=== PATIENT | female | born 1985 | race Caucasian/White ===

== ENCOUNTER → 2017-07-15 09:33 | Outpatient (CLI) | payer BC, SELFPAY ==
--- NOTE | 2017-07-15 09:36 | CA_ITS ---
PROCEDURE: 2-D M-mode and color Doppler study INDICATIONS FOR THE TEST: Chest pain COPD Heart MurmurX Tobacco SmokingX Palpitations Fatigue Syncope Edema Hypertension Diabetes Mellitus Rheumatic Fever SOB ROBERTS Obesity Hyperlipidemia Family History HD Additional History BREAST IMPLANTS PATIENT INFORMATION HEIGHT: 64 WEIGHT:157 GENDER: Female B/P:120/80 2-D/M-MODE INTERPRETATION: 2-D MEASUREMENTS OBSERVED VALUES IN CMS Right Ventricular Dimension (RVDd) 2.5 Interventricular Septum (Thickness)(IVsd) .8 Left Ventricular Internal Dimensions(LVIDd) 5.0 Left Ventricular Posterior Wall (Thickness)(LVPWd) .9 Aortic Root 3.3 Aortic Cusp Separation 1.5 Left Atrial Dimensions (LAD) 2.9 2D 1. Left atrium is normal size, left ventricle is normal size, there is no concentric left ventricular hypertrophy, visually estimated ejection fraction 55% with no obvious regional wall motion abnormality. 2. The right atrium and right ventricle are normal size and contractility. 3. The aortic, mitral and tricuspid valve are grossly normal. 4. The pulmonic valve is poorly visualized 5. No significant pericardial effusion noted. DOPPLER INTERROGATION: Doppler interrogation of the aortic, mitral and tricuspid valvular presence of mild mitral and tricuspid regurgitation, tricuspid and jet velocity insufficient for calculation of the right ventricular systolic pressure, diastolic parameters are within normal range. CONCLUSION: 1. Normal left ventricular size, preserved left ventricular systolic function, visually estimated ejection fraction 55% with no obvious regional wall motion abnormality, diastolic parameters are within normal range. 2. Mild mitral and tricuspid addition 3. No significant pericardial effusion noted.
== END ==
PROVIDERS: Family Provider Nurse Practitioner Obstetrics & Gynecology; PCP Internal Medicine Adolescent Medicine; Visit Provider Nurse Practitioner Family
DX: R01.1 Cardiac murmur, unspecified (principal)
CPT/HCPCS: 93306

== ENCOUNTER 2017-10-13 18:10 | Observation (INO) ==
[2017-10-13 19:24] LABS: Albumin Level 3.8 gm/dL (3.4-5.0); Albumin/Globulin Ratio 1.1 (1.1-1.8); Anion Gap 13.8 mEq/L (5-15); Bilirubin,Total 0.3 mg/dL (0.2-1.0); Calcium 8.9 mg/dL (8.5-10.1); Globulin 3.4 gm/dl (1.3-3.2); Potassium 3.8 mmoL/L (3.5-5.1); Total Protein,Serum 7.2 gm/dL (6.4-8.2)
[2017-10-14 06:32] LABS: Basophils % 0.2 % (0.1-2.0); Calcium 8.7 mg/dL (8.5-10.1); Eosinophils # 0.1 K/mm3 (0.0-0.4); Eosinophils % 1.7 % (0.1-12.0); Hematocrit 40.4 % (37.0-47.0); Hemoglobin 12.4 g/dL (12.2-16.2); Lymphocytes # 3.3 K/mm3 (0.7-4.5); Lymphocytes % 39.6 K/mm3 (10-50); Mean Corpuscular HGB Conc 30.7 g/dL (31.8-35.4); Mean Corpuscular Hemoglobin 29.6 pg (27.0-31.2); Mean Corpuscular Volume 96.3 fl (81-99); Mean Platelet Volume 7.5 fl (7.4-10.4); Monocytes # 0.4 K/mm3 (0.1-1.0); Monocytes % 4.5 % (1.7-9.3); Neutrophils # 4.5 K/mm3 (1.8-7.8); Platelet Count 329 K/mm3 (142-424); Red Blood Count 4.19 M/mm3 (4.20-5.40); White Blood Count 8.3 K/mm3 (4.8-10.8)
--- NOTE | 2017-10-14 07:25 | Pharmacy Consult Notes ---
[facility] Pharmacy VTE Monitoring - Patient Demographics Admission date: 10/13/17 Report Date: 10/14/17 Time: 07:24 Allergies/Adverse Reactions: Patient Allergies Penicillins [PENICILLINS] Allergy (Unknown, Verified 10/12/17 17:11) Height: 1.6 m Weight: 80.371 kg - VTE Risk Labs: VTE Related Lab Results Hgb 12.4 g/dL (12.2-16.2) 10/14/17 05:50 Hct 40.4 % (37.0-47.0) 10/14/17 05:50 Plt Count 329 K/mm3 (142-424) 10/14/17 05:50 BUN 13 mg/dL (7-18) 10/14/17 05:50 Creatinine 0.74 mg/dL (0.55-1.02) 10/14/17 05:50 Estimated Creat Clear 140 mL/min (0-300) 10/14/17 05:50 VTE Score: 0 - Prophylaxis VTE Prophylaxis Ordered?: Yes Types of VTE Prophylaxis: TEDS Knee High Location of Applied Device: Bilateral Lower Extremeties - VTE Diagnosis Confirmed Treatment or plan recommended: Continue Current Treatment
--- NOTE | 2017-10-14 07:55 | History & Physical Report ---
*Admission Date: 10/13/17 *Chief complaint: Right upper quadrant pain and vomiting *History of present illness: 32-year-old white female with no significant past medical history who has been to the emergency department a couple of times over the past 48 hours with significant abdominal pain and vomiting and diarrhea. Workup days ago in the emergency department included labs which were essentially unremarkable and a CT scan of the abdomen which showed possible cholelithiasis with possible sludge but no evidence of biliary ductal dilatation. She was sent home on supportive care measures, but has failed to improve, and call me back with significant complaints of pain and vomiting and we elected to direct admit her for fluids ultrasonography examination this morning. She states that this morning she feels better after 1 night of IV fluids. [facility] History I have reviewed the patient's past medical history: Yes Medical History: Denies:: Cancer, Diabetes Mellitus Type 1, Diabetes Mellitus Type 2, MRSA Other Surgeries: Yes: (2) Amputation: No Fractures: No - *Social History Educational Level: Attended College Smoking Status: Current every day smoker Tobacco Type: cigarettes #Yrs smoked (if former smoker): 10 Alcohol Intake: never Occupational Status: employed Housing: house Household Members: spouse, family, children - Psychiatric History Expresses thoughts of harming self/others: None Suicide Plan Description: No Plan *Family Hx:: No significant family history Review of Systems - Review of Systems Review of systems:: pertinent systems reviewed and negative unless documented below - Constitutional Denies anorexia, Denies body ache(s) - Eyes Denies blind spots - ENT Denies abnormal hearing, Denies bleeding gums - *Cardiovascular Denies chest pain, Denies chest pain at rest, Denies excessive sweating, Denies shortness of breath - *Respiratory Denies change in phlegm color, Denies chest congestion - *Gastrointestinal Reports abdominal pain, Reports belching, Reports bloating, Denies coffee ground vomit, Denies constipation - *Musculoskeletal Denies abnormal walking, Denies joint pain Meds Home Medications Medication Instructions Recorded Confirmed Type Ondansetron HCl [Zofran 4mg Tab] 4 mg PO Q6HP PRN 10/14/17 10/14/17 History Allergies Allergy/AdvReac Type Severity Reaction Status Date / Time Penicillins [PENICILLINS] Allergy Unknown Verified 10/12/17 17:11 Exam Vital signs and Labs for Last 24 Hours: Temp Pulse Resp BP Pulse Ox 97.8 F 76 16 97/63 96 10/14/17 04:05 10/14/17 04:05 10/14/17 04:05 10/14/17 04:05 10/14/17 04:05 Laboratory Results - last 24 hr 10/13/17 18:18: Sodium 140, Potassium 3.8, Chloride 104, Carbon Dioxide 26, Anion Gap 13.8, BUN 16, Creatinine 0.85, Estimated Creat Clear 122, Estimated GFR 78, Est GFR ( Amer) 94, Glucose 132 H, Calcium 8.9, Total Bilirubin 0.3, AST 14 L, ALT 27, Alkaline Phosphatase 69, Total Protein 7.2, Albumin 3.8, Globulin 3.4 H, Albumin/Globulin Ratio 1.1, Lipase 210 10/14/17 05:50: WBC 8.3, RBC 4.19 L, Hgb 12.4, Hct 40.4, MCV 96.3, MCH 29.6, MCHC 30.7 L, RDW 13.0, Plt Count 329, MPV 7.5, Neut % (Auto) 54.0, Lymph % (Auto ) 39.6, Hoke % (Auto) 4.5, Eos % (Auto) 1.7, Baso % (Auto) 0.2, Neut # (Auto) 4.5, Lymph # (Auto) 3.3, Hoke # (Auto) 0.4, Eos # (Auto) 0.1, Baso # (Auto) 0.0 10/14/17 05:50: Sodium 142, Potassium 4.0, Chloride 106, Carbon Dioxide 29, Anion Gap 11.0, BUN 13, Creatinine 0.74, Estimated Creat Clear 140, Estimated GFR 92, Est GFR ( Amer) 111, Glucose 95 D, Calcium 8.7 I & O for Last 24 hours: Intake & Output 10/11/17 10/12/17 10/13/17 10/14/17 11:59 11:59 11:59 11:59 Intake Total 1416 / 1416 Balance 1416 / 1416 Weight 177 lb 3.003 oz Narrative: Patient is pleasant, awake, alert, lungs clear bilaterally, abdomen soft but tender in the right upper quadrant with a positive Qureshi sign. Left side is clear, lower quadrants are clear of tenderness. H&P: Result - Labs Labs: Short CBC 10/14/17 Range/Units 05:50 WBC 8.3 (4.8-10.8) K/mm3 Hgb 12.4 (12.2-16.2) g/dL Hct 40.4 (37.0-47.0) % Plt Count 329 (142-424) K/mm3 BMP 10/13/17 10/14/17 18:18 05:50 Sodium 140 142 Potassium 3.8 4.0 Chloride 104 106 Carbon Dioxide 26 29 BUN 16 13 Creatinine 0.85 0.74 Glucose 132 H 95 D Calcium 8.9 8.7 Liver Function 10/13/17 Range/Units 18:18 Total Bilirubin 0.3 (0.2-1.0) mg/dL AST 14 L (15-37) U/L ALT 27 (12-78) U/L Alkaline Phosphatase 69 (46-116) U/L Albumin 3.8 (3.4-5.0) gm/dL Assessment and Plan (1) Acid reflux Current visit: No Status: Acute Category: Medical Code(s): K21.9 - Gastro- esophageal reflux disease without esophagitis (2) Gallbladder disease Current visit: No Status: Acute Category: Medical Code(s): K82.9 - Disease of gallbladder, unspecified Check ultrasound today. If negative consider surgery/GI evaluation for EGD.
--- NOTE | 2017-10-14 13:54 | Discharge Summary ---
General - General Admission date:: 10/13/17 Discharge date: 10/14/17 HPI HPI: 32-year-old white female with no significant past medical history who has been to the emergency department a couple of times over the past 48 hours with significant abdominal pain and vomiting and diarrhea. Workup days ago in the emergency department included labs which were essentially unremarkable and a CT scan of the abdomen which showed possible cholelithiasis with possible sludge but no evidence of biliary ductal dilatation. She was sent home on supportive care measures, but has failed to improve, and call me back with significant complaints of pain and vomiting and we elected to direct admit her for fluids ultrasonography examination this morning. She states that this morning she feels better after 1 night of IV fluids. Hospital Course Hospital Course: Patient was admitted and hydrated. Labs were essentially unremarkable. She felt much better after 1 night of IV fluids and some intravenous antiemetics and acid blockade. This morning she continued to have mild epigastric and upper quadrant tenderness. However ultrasonography was completely normal. Plan will be to discharge home with Protonix, Phenergan, cautious advancement of diet and follow-up with surgical doctors next week for evaluation for EGD. Objective Vital signs: Temp Pulse Resp BP Pulse Ox 98.4 F 70 16 115/73 99 10/14/17 08:00 10/14/17 08:00 10/14/17 08:00 10/14/17 08:00 10/14/17 08:00 Narrative: Lungs clear, heart rate regular, abdomen soft, some epigastric and upper right quadrant tenderness but improved over baseline. Results Labs on day of discharge: Labs from last 24 hours 10/14/17 10/14/17 10/13/17 05:50 05:50 18:18 WBC 8.3 RBC 4.19 L Hgb 12.4 Hct 40.4 MCV 96.3 MCH 29.6 MCHC 30.7 L RDW 13.0 Plt Count 329 MPV 7.5 Neut % (Auto) 54.0 Lymph % (Auto) 39.6 [place] % (Auto) 4.5 Eos % (Auto) 1.7 Baso % (Auto) 0.2 Neut # (Auto) 4.5 Lymph # (Auto) 3.3 [place] # (Auto) 0.4 Eos # (Auto) 0.1 Baso # (Auto) 0.0 Sodium 142 140 Potassium 4.0 3.8 Chloride 106 104 Carbon Dioxide 29 26 Anion Gap 11.0 13.8 BUN 13 16 Creatinine 0.74 0.85 Estimated Creat Clear 140 122 Estimated GFR 92 78 Est GFR ( Amer) 111 94 Glucose 95 D 132 H Calcium 8.7 8.9 Total Bilirubin 0.3 AST 14 L ALT 27 Alkaline Phosphatase 69 Total Protein 7.2 Albumin 3.8 Globulin 3.4 H Albumin/Globulin Ratio 1.1 Lipase 210 DS: Diagnosis - Discharge Diagnosis (1) Acid reflux Status: Acute (2) Gallbladder disease Status: Suspected Discharge Plan - Patient Discharge Instructions ACTIVITY: Continue current activity DIET: low fat, low cholesterol - Follow up Plan Follow up with: Darius Lr MD [Staff Physician] - 10/17/17 Disposition: Home, Self-Assisted Medications: Home Medications Medication Instructions Recorded Confirmed Type Ondansetron HCl [Zofran 4mg Tab] 4 mg PO Q6HP PRN 10/14/17 10/14/17 History Prescriptions/Medication Reconciliation: New Promethazine HCl [Phenergan 25mg tab] 25 mg PO Q6HP PRN #25 tab PRN Reason: Nausea And Vomiting Pantoprazole Sodium [Protonix 40mg tablet] 40 mg PO BID 30 Days #60 tab Continue Ondansetron HCl [Zofran 4mg Tab] 4 mg PO Q6HP PRN PRN Reason: Nausea And Vomiting
== END 2017-10-14 15:30 | disposition home or self-care (01) ==
LOC: 2ND
PROVIDERS: ADMIT Internal Medicine Adolescent Medicine; ATTEND Internal Medicine Adolescent Medicine
CPT/HCPCS: 36415; 76705; 80048; 80053; 83690; 85025; G0378; J2405

== ENCOUNTER → 2017-10-25 10:02 | Outpatient (CLI) | payer BC, SELFPAY ==
--- NOTE | 2017-10-25 10:03 | NM_ITS ---
NM hepatobiliary w pharm HISTORY: Abdominal pain with nausea, right upper quadrant pain, severe pain and nausea ITS.REASON: RUQ pain. Needs CCK ORDERING PHYSICIAN: Darius Lr MD PATIENT AGE: 32 years COMPARISON: None DOSE: 8.18 mci tc choletec 1.6 mcg cck inj into rt ant FINDINGS: Homogeneous activity is present within the hepatic parenchyma. Activity is present in the gallbladder by 10 minutes. Activity is present in the small bowel by 20 minutes. Gallbladder ejection fraction was not able to be properly calculated as the patient complained of severe pain and nausea within 9 minutes of starting the CCK. Patient had to go to the bathroom and vomited. CCK images were attempted to be resumed but the patient once again experienced severe nausea pain and vomiting and the study could not be performed. IMPRESSION: 1. No evidence of common or cystic duct obstruction. 2. Severe nausea pain and vomiting with CCK infusion. Gallbladder ejection fraction was not able to be obtained
== END ==
PROVIDERS: Family Provider Nurse Practitioner Obstetrics & Gynecology; PCP Internal Medicine Adolescent Medicine; Visit Provider Surgery
DX: K82.9 Disease of gallbladder, unspecified (principal)
CPT/HCPCS: 78227; A9537; J2805

== ENCOUNTER → 2017-12-03 08:26 | Outpatient (CLI) | payer BC, SELFPAY ==
[2017-12-03 08:28] LABS: Adenovirus F 40/41, stool Not Detected (NotDetected); Astrovirus Not Detected (NotDetected); Campylobacter Not Detected (NotDetected); Clostridium Difficile A/B, PCR Not Detected (NotDetected); Cryptosporidium Not Detected (NotDetected); Cyclospora Cayetanesis Not Detected (NotDetected); Entamoeba histolytica Not Detected (NotDetected); Enteroaggregative E coli Not Detected (NotDetected); Enteropathogenic E coli Not Detected (NotDetected); Enterotoxigenic E coli Not Detected (NotDetected); Giardia lamblia Not Detected (NotDetected); Norovirus Not Detected (NotDetected); Plesimonas Shigalloides, PCR Not Detected (NotDetected); Rotavirus A Not Detected (NotDetected); Salmonella, PCR Not Detected (NotDetected); Sapovirus Not Detected (NotDetected); Shiga-like toxin E coli Not Detected (NotDetected); Shigella Enterovasive E coli Not Detected (NotDetected); Vibrio Cholerae Not Detected (NotDetected); Vibrio, PCR Not Detected (NotDetected); Yersinia Entercolitica, PCR Not Detected (NotDetected)
== END ==
PROVIDERS: Family Provider Nurse Practitioner Obstetrics & Gynecology; PCP Internal Medicine Adolescent Medicine; Visit Provider Surgery
DX: R19.7 Diarrhea, unspecified (principal)
CPT/HCPCS: 87507

== ENCOUNTER 2018-11-25 11:04 | Outpatient (RCR) | payer OTHER, SELFPAY | END 2018-11-25 11:10 | disposition home or self-care (01) | LOC: OT 11:04 | PROVIDERS: Visit Provider Orthopaedic Surgery | DX: G56.03 Carpal tunnel syndrome, bilateral upper limbs (principal) | CPT/HCPCS: 97763 ==

== ENCOUNTER 2019-02-06 08:00 | Outpatient (RCR) | payer OTHER, SELFPAY ==
--- NOTE | 2018-12-15 09:09 | HMH.PTOPEV ---
PT Outpatient Evaluation Rehab PT Outpatient Evaluation Start: 12/15/18 08:05 Freq: Status: Active Protocol: Document 12/15/18 08:33 GOGO (Rec: 12/15/18 09:09 CAREYJULIA [id number]) Electronically Signed By Manuelito Sheets, ANDRÉS 12/15/18 08:33 Outpatient Therapy Subjective History Subjective History 33 year old female pt. repors w/ L shoulder pn. that occured after an injury at work 1 month ago. Pt. was pulling something overhead and she felt a pop and an immediate pn . in her left shoulder. Pt. has been utilizing a sling for the past month. Pt. reports numbness going into left hand that is brought on by movement . Pt. has seen multiple M.Ds and received an MRI. Results of MRI will be read on Saturday. Note and Eval done by student PT Kulwinder Tejada Chief Complaint Pain,Paresthesia,Weakness Symptom Type Sharp,Burning,Tingling Symptoms Relieved By Brace/Support,OTC Meds, Prescription Meds Symptoms Aggravated By Physical Activity,Lifting Prior Functional Limitations None Current Functional Limitations Reaching,Lifting,Housework, Dressing,Recreation Activity Symptom Description Constant but Variable Level of pain today (0-10) 4 Pain scale - at its best (0-10) 2 Pain scale - at its worst (0-10) 6 Cervical Eval Palpation Cervical Muscles L Upper Trapezius Cervical/Thoracic Palpation Findings Muscle Guarding Flexibility Deficits Upper Trapezius Muscle Length (L) Mild Tightness Levaetor Scapulae Muscle Length (L) Mild Tightness AROM Cervical Spine Extension Active Range of WNL Motion (degrees) Cervical Spine Flexion Active Range of WNL Motion (degrees) Cervical Spine Right Lateral Flexion WNL Active Range of Motion (degrees) Cervical Spine Left Lateral Flexion WNL Active Range of Motion (degrees) Cervical Spine Right Rotation Active WNL Range of Motion (degrees) Cervical Spine Left Rotation Active WNL Range of Motion (degrees) MMT Right Deltoid (C5) 5 Normal Biceps Brachii Strength Grade 5 Normal Wrist Extension Strength Grade 5 Normal Triceps Brachii Strength Grade 5 Normal Wrist Flexion Strength Grade 5 Normal Extensor Pollicis Longus Strength Grade 5 Normal Finger Abduction Strength Grade 5 Normal Left
== END 2019-02-06 08:05 | disposition home or self-care (01) ==
LOC: PT 08:00
PROVIDERS: Visit Provider Emergency Medicine
DX: S46.812A Strain of other muscles, fascia and tendons at shoulder and upper arm level, left arm, initial encounter (principal); S49.92XA Unspecified injury of left shoulder and upper arm, initial encounter
CPT/HCPCS: 97010; 97014; 97016; 97033; 97035; 97110; 97140; 97163; 97164; G0283

== ENCOUNTER 2019-02-16 08:00 | Outpatient (RCR) | payer OTHER, SELFPAY | END 2019-02-16 08:05 | disposition home or self-care (01) | LOC: PT 08:00 | DX: M75.42 Impingement syndrome of left shoulder (principal) | CPT/HCPCS: 97010; 97014; 97033; 97035; 97110; 97140; 97163; G0283 ==

== ENCOUNTER 2019-11-25 09:00 | Outpatient (RCR) | payer OTHER, SELFPAY | END 2019-12-15 09:05 | disposition home or self-care (01) | LOC: PT 09:00 | PROVIDERS: Visit Provider Orthopaedic Surgery | DX: M25.512 Pain in left shoulder (principal) | CPT/HCPCS: 97010; 97014; 97016; 97033; 97035; 97110; 97140; 97163; 97164; G0283 ==

== ENCOUNTER → 2020-03-15 15:23 | Outpatient (CLI) | payer BC, SELFPAY ==
[2020-03-15 16:24] LABS: Free Thyroxine Index 2.9 ug/dL (5.93-13.13); T4 (Thyroxine) 9.7 ug/dl (5.53-11.0); Triiodothryronine (T3) Uptake 30 % (23.5-40.5)
[2020-03-15 16:38] LABS: Thyroid Stimulating Hormone 1.64 uIU/mL (0.465-4.68)
== END ==
PROVIDERS: Visit Provider Nurse Practitioner Obstetrics & Gynecology
DX: E04.9 Nontoxic goiter, unspecified (principal)
CPT/HCPCS: 36415; 84436; 84443; 84479

== ENCOUNTER → 2020-04-05 13:38 | Outpatient (CLI) | payer BC, SELFPAY ==
[2020-04-05 14:21] LABS: Basophils # 0.1 K/mm3 (0-0.2); Basophils % 0.5 % (0.1-2.0); Eosinophils # 0.1 K/mm3 (0.0-0.4); Hematocrit 42.1 % (37.0-47.0); Hemoglobin 13.8 g/dL (12.2-16.2); Lymphocytes # 2.6 K/mm3 (0.7-4.5); Lymphocytes % 27.8 % (10-50); Mean Corpuscular HGB Conc 32.8 g/dL (31.8-35.4); Mean Corpuscular Hemoglobin 31.7 pg (27.0-31.2); Mean Corpuscular Volume 96.8 fl (81-99); Mean Platelet Volume 8.1 fl (7.4-10.4); Monocytes # 0.4 K/mm3 (0.1-1.0); Monocytes % 3.8 % (1.7-9.3); Neutrophils # 6.2 K/mm3 (1.8-7.8); Neutrophils % 66.9 % (37.0-80.0); Platelet Count 419 K/mm3 (142-424); Red Blood Count 4.35 M/mm3 (4.20-5.40); Red Cell Distribution Width 13.2 % (11.5-17.5); White Blood Count 9.2 K/mm3 (4.8-10.8)
[2020-04-05 14:57] LABS: Anion Gap 13.3 mEq/L (5-15); Blood Urea Nitrogen 7 mg/dl (7-17); Calcium 10.4 mg/dl (8.4-10.2); Carbon Dioxide 28 mmol/L (22.0-30.0); Chloride 102 mmol/L (98-107); Estimated Glomerular Filt Rate 96 ml/min (>60); GFR (African American) 117 ML/MIN (>60); Glucose 92 mg/dl (74-100); Potassium 4.3 mmoL/L (3.5-5.1); Sodium 139 mmol/L (136-145)
[2020-04-05 15:01] LABS: HCG Qualitative, Serum Negative (Negative)
[2020-04-05 15:26] LABS: Coronavirus 19 IgG Antibody Negative (Negative)
[2020-04-05 15:27] LABS: Coronavirus 19 IgM Antibody Negative (Negative)
== END ==
PROVIDERS: Visit Provider Nurse Practitioner Obstetrics & Gynecology
DX: Z01.818 Encounter for other preprocedural examination (principal); Z03.818 Encounter for observation for suspected exposure to other biological agents ruled out; Z30.09 Encounter for other general counseling and advice on contraception
CPT/HCPCS: 36415; 80048; 84703; 85025; 86328

== ENCOUNTER 2020-04-07 05:45 | Day surgery (SDC) | payer BC, SELFPAY ==
[2020-04-05 10:30] VITALS: BMI 32.2
[2020-04-07] VITALS (11 sets, daily range): BP systolic 118–153; BP diastolic 81–95; PULSE 18–93; RESP 16–18; TEMP 36.3–36.6; O2SAT 95–98
--- NOTE | 2020-04-07 06:55 | HMH.ANESCL ---
[facility] Anesthesia Checklist - Patient Identification Patient Identification: Arm Band, Verbal (Name & ) - Structural Data Admitted From: Home Planned Operative Procedure/s: Laparoscopic bilateral salpingectomy Consent for Planned Operative Procedure(s) Verified: Yes Verified Documents: Surgical Consent, History and Physical - NPO Status Verified Time NPO: 20:30 - Chart Verification Results Verified: CBC, BMP, HCG - Additional verifications Patient : No Anesthesia Reactions: No Hx Blood Transfusions: No Blood Transfusion Reaction: No - Airway Assessment C-Spine Mobility Assessed: Yes (MP 2, TMD 3, full neck ROM) TMJ Mobility Assessed: Yes Dentition: Good Dentition - Neurological Assessment Level of Consciousness: Awake, Alert, Appropriate, Follows Commands Hx Seizures: No Numbness or tingling in extremities: No - Anesthesia Plan Anesthesia Risk discussed: Yes Anesthesia Plan: Verified ASA Class: II Anesthesia Type: General [facility] History I have reviewed the patient's past medical history: Yes Medical History: Reports:: Heart Murmur Denies:: Cancer, Diabetes Mellitus Type 1, Diabetes Mellitus Type 2, Internal Pacemaker, MRSA, Seizures *Have you ever received a pneumonia vaccine?: No *Have you received a flu vaccine this season?: Yes Other Medical History: Reports: Other. Denies: Blood Transfusion Reaction Comment:: obesity Anesthesia experience/problems:: None Laterality Cases: Left: Arthroscopy Shoulder Other Surgeries: Yes: Cholecystectomy, . No: Pacemaker Amputation: No Fractures: No - *Social History Last grade of school completed: Some college Smoking Status: Never smoker #Yrs smoked (if former smoker): 10 Alcohol Intake: never Alcohol Intake Frequency:: other Substance Use Type: denies use *Occupational Status:: employed Housing: house Household Members: spouse *Travel in the last 8 weeks: None Family Hx:: No significant family history
--- NOTE | 2020-04-07 08:02 | P.OP_ITS ---
Date of procedure: 04/07/20 Pre-op Diagnosis:: Desire for sterilization Post-op Diagnosis:: Desire for sterilization, omental adhesions Procedure performed:: Laparoscopic bilateral salpingectomy Surgeon:: Igor Kaplan MD TECHNOLOGY EDUCATION TEACHER:: Ryan Cole Anesthesia: GETA Estimated blood loss (mL): 25 Clinical Note:: She is a 34-year-old lady who expresses desire for sterilization. The risks and benefits as well as the irreversibility of bilateral salpingectomy were discussed with the patient prior to surgery. Operative findings:: She had an anteverted normal-appearing uterus. There were adhesions just below the umbilicus on the right side of the abdominal wall. The adhesions were from the omentum to the anterior abdominal wall. The fallopian tubes appeared normal. The ovaries appeared normal. The deep pelvis appeared normal. Operative note:: She was taken to the operating room where general anesthesia was found be adequate. She was prepped and draped in normal sterile fashion in the semilithotomy position. A weighted speculum was placed in the vagina and the anterior lip of the cervix was grasped with a tenaculum. I then inserted a Cristiana uterine manipulator into the cervical os. The balloon was then insufflated. I changed gloves and injected 10 cc of 0.5% ropivacaine around her umbilicus and made a small incision within the umbilicus. I inserted a Veress needle into the abdominal cavity. The peritoneal cavity was then insufflated with carbon dioxide gas to a pressure of 20 mmHg. I then inserted a 5 millimeter trocar under direct vision. I injected through and through the pubic hairline, made a small incision here and inserted an 8 mm trocar under direct vision. I iden tified the inferior epigastric artery on the left side, went lateral to these and injected through and through. I then placed a 5 mm trocar here under direct vision. The pelvis and upper abdomen were then inspected and the findings were as previously dictated. There was a small thin adhesion from the omentum to the anterior abdominal wall just above the level of the uterus and this was taken do wn with harmonic scalpel. I elected to leave the other adhesions alone. She has not had any complaints. I grasped the right tube at the cornua and using harmonic scalpel on coagulation mode I cut through the tube. I then grasped the distal tube and using harmonic scalpel cut along the mesosalpinx. The tube was removed through 8 mm trocar site. This was similarly performed on the patient's left side. I then injected 30 cc of 0.5% ropivacaine into the pelvis. After assuring hemostasis the gas was let out of the abdomen and hemostasis was once again assured. The abdomen was then reinsufflated. The secondary trochars were removed under direct vision. The gas was let out her abdomen. The primary trocar was then removed. The 8 mm trocar site was closed deeply with 2-0 Vicryl suture followed by subcuticular 4-0 Monocryl suture. The 5 mm trocar sites were closed with subcuticular 4-0 Monocryl. Sterile dressings were applied. The patient tolerated the procedure well and was taken to the recovery room in excellent condition. All sponge instrument and needle counts were correct. The estimated blood loss was less than 25 cc. Condition: stable Disposition: PACU Specimens:: Bilateral fallopian tubes Complications:: None
--- NOTE | 2020-04-07 08:11 | P.PN_ITS ---
[facility] Anesthesia Record Part I Intake, IV Amount: 700 Estimated blood loss (mL): 25 Urine output (mL): 0 (NM) Blood Products used (#): none Blood Pressure: 135/86 SaO2: 97 Pulse Rate: 92 Respiratory Rate: 16 Temperature: 97.6 F Patient is:: Awake, Stable Stable to PACU at:: 08:07
--- NOTE | 2020-04-07 08:44 | PC.NURSE ---
0815-pt taking sips of water w/out difficulty, denies nausea 0832-detailed report called to STALIN Quintanilla 0837-pt transported to post op via stretcher w/lul rails up and left in care of STALIN Quintanilla with bed locked in lowest position, vss, pt stable
--- NOTE | 2020-04-07 13:24 | P.PN_ITS ---
[facility] Anesthesia Record Part II Discharge Time: 08:37 Destination: Surgical Day Care (OP Surgery) PACU nurse assessment reviewed?: Yes Patient Condition:: Good Anesthesia Complications:: None Swallowing reflex intact?: Yes Cyanosis?: No Blood Pressure: 134/89 Pulse Rate: 18 Temperature: 97.6 F Mental Status: Alert & Oriented Pain level:: 0 Nausea and/or vomitting:: None Intake, IV Amount: 0
== END 2020-04-07 09:19 | disposition home or self-care (01) ==
PROVIDERS: PCP Internal Medicine Adolescent Medicine; Visit Provider Nurse Practitioner Obstetrics & Gynecology
PROC: (CPT 58700; principal; 2020-04-07 07:30)
DX: Z30.2 Encounter for sterilization (principal); K66.0 Peritoneal adhesions (postprocedural) (postinfection); R01.1 Cardiac murmur, unspecified; Z88.0 Allergy status to penicillin
CPT/HCPCS: 58700; 96374; J2405

== ENCOUNTER 2020-12-30 11:00 | Outpatient (RCR) | payer OTHER, SELFPAY | END 2020-12-30 11:05 | disposition home or self-care (01) | LOC: OT 11:00 | PROVIDERS: Visit Provider Orthopaedic Surgery | DX: M25.512 Pain in left shoulder (principal) | CPT/HCPCS: 97010; 97014; 97035; 97110; 97140; 97164; 97165; 97530; G0283 ==

== ENCOUNTER 2021-02-01 17:06 | Emergency (ER) | payer OTHER, SELFPAY ==
[2021-02-01 18:00] VITALS: BP 111/87; PULSE 81; RESP 16; TEMP 36.8; O2SAT 98; BMI 25.4
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
[2021-02-01 18:58] VITALS: BP 111/87; PULSE 81; RESP 16; TEMP 36.8; O2SAT 98
== END 2021-02-01 18:56 | disposition home or self-care (01) ==
LOC: UTC 17:25 → ER 17:42
PROVIDERS: Emergency Provider Student in an Organized Health Care Education/Training Program; PCP Internal Medicine Adolescent Medicine
DX: S46.811A Strain of other muscles, fascia and tendons at shoulder and upper arm level, right arm, initial encounter (principal); S16.1XXA Strain of muscle, fascia and tendon at neck level, initial encounter; V43.52XA Car driver injured in collision with other type car in traffic accident, initial encounter; Y92.414 Local residential or business street as the place of occurrence of the external cause
CPT/HCPCS: 99281

== ENCOUNTER 2022-03-23 08:35 | Emergency (ER) | payer OTHER, SELFPAY ==
[2022-03-23 09:01] VITALS: BP 130/87; PULSE 84; RESP 15; TEMP 37.1; O2SAT 98; BMI 22.3
--- NOTE | 2022-03-23 09:05 | EXP.UTC ---
Discharge Plan Disposition Patient Disposition: Home, Self-Care Condition: Good Prescriptions Prescriptions: New phenazopyridine [Pyridium] 200 mg tablet 200 mg PO Q8H 2 Days Qty: 6 0RF sulfamethoxazole-trimethoprim [Bactrim DS] 800-160 mg Tablet 1 tab PO BID Qty: 14 0RF fluconazole [Diflucan] 150 mg tablet 150 mg PO ONCE Qty: 1 2RF Referrals Follow up/Referrals: Rosibel Schmitt APRN [Primary Care Provider] - See instructions Activity Restrictions/Add. Instructions Additional Instructions/Restrictions: Drink plenty of fluids. Take tylenol or ibuprofen for pain or fever. Take the medications as directed. Follow up with your regular doctor. GO TO THE ER FOR ANY WORSENING SYMPTOMS The pyridium will make your urine turn orange, this is an expected side effect. It will stain your clothes if it comes into contact with them. We will culture the urine. That will tell what bacteria is causing your infection and which antibiotics will treat it best. Sometimes the first antibiotic we prescribe turns out to not work against different bacteria. So, make sure you follow up within 3 days if you are not getting better. Clinical Impressions Clinical Impression: UTI (urinary tract infection) Instructions Patient Instructions: DI for Dysuria -- Adult, DI for Urinary Tract Infection (UTI), Urine Culture, Phenazopyridine Discharge ED Provider: John Mireles [facility] General Stated complaint: possible UTI Mode of Arrival: Ambulatory Source of Information: Patient Limitations: No Limitations Time Seen by Provider: 03/23/22 09:05 Description of Symptoms (Recalled from Triage Doc. by RN): pt comes in with c/o uti. symptoms began saturday. HEENT Symptoms (Recalled from RN notes): No Resp Symptoms (Recalled from RN notes): No Skin Symptoms (Recalled from RN notes): No MS Symptoms (Recalled from RN notes): No Functional Status (Recalled from RN notes): n/a History of Present Illness Provider Complaint: She states that she has had burning with urination for the past 2 days. Related Data Previous Rx's Medication Instructions Recorded fluconazole 150 mg tablet 150 mg PO ONCE #1 tab 03/23/22 (Diflucan) phenazopyridine 200 mg tablet 200 mg PO Q8H 2 days #6 tabs 03/23/22 (Pyridium) sulfamethoxazole 800 1 tab PO BID #14 tabs 03/23/22 mg-trimethoprim 160 mg tablet (Bactrim DS) Allergies Allergy/AdvReac Type Severity Reaction Status Date / Time Penicillins [PENICILLINS] Allergy Unknown Verified 03/23/22 09:04 Worker's Comp Is this a Worker's Comp case?: No [facility] Disclaimer: The information contained in this section may have been updated after the patient was seen, as this information can be updated by other users. 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 current occupational exposures/hazards: Yes caffeine: Yes ROS Obtained: Yes All systems reviewed & no additional complaints except as documented Constitutional Constitutional: Reports system reviewed and no additional complaints, except as documented, Denies chills and Denies fever(s) Eyes Eyes: Denies eye discharge ENT Ears, Nose, Mouth, and Throat: Denies dysphagia, Denies sore throat and Denies throat swelling Cardiovascular Cardiovascular: Denies chest pain and Denies dyspnea Respiratory Respiratory: Denies chest congestion, Denies cough and Denies dyspnea Gastrointestinal Gastrointestingal: Denies abdominal pain, constipation, diarrhea, dysphagia, nausea or vomiting Genitourinary Female Genitourinary: Reports as per HPI, Reports dysuria, Reports sexual dysfunction, Reports urinary frequency, Denies urinary incontine
[2022-03-23 09:35] VITALS: BP 130/87; PULSE 84; RESP 15; TEMP 37.1
[2022-03-23 10:43] LABS: Apearance,Urine Cloudy (Clear); Blood, Urine 3+ (Negative); Color,Urine Orange (Yellow); Glucose,Urine (UA) 1+ (Negative); Ketones,Urine Negative (Negative); Protein,Urine 1+ (Negative)
[2022-03-23 10:44] LABS: Bilirubin,Urine Negative (Negative); UTC Leukocyte Esterase,Urine 1+ (Negative); UTC Nitrate,Urine Positive (Negative); Urobilinogen,Urine 1 EU/dl (0.2)
== END 2022-03-23 09:36 | disposition home or self-care (01) ==
PROVIDERS: Emergency Provider Nurse Practitioner Family; PCP Nurse Practitioner Family
DX: N39.0 Urinary tract infection, site not specified (principal)
CPT/HCPCS: 81003; 87086; 87088; 87186; 99212; G0463

== ENCOUNTER 2022-05-19 22:15 | Emergency (ER) | payer OTHER, SELFPAY ==
[2022-05-19 22:22] VITALS: BP 149/84; PULSE 79; RESP 18; TEMP 36.6; O2SAT 98; BMI 27.4
--- NOTE | 2022-05-19 22:29 | CT_ITS ---
PROCEDURE INFORMATION: Exam: CT Abdomen And Pelvis With Contrast Exam date and time: 05/19/2022 11:19 PM Age: 36 years old Clinical indication: Abdominal pain; Additional info: Post-op pain TECHNIQUE: Imaging protocol: Computed tomography of the abdomen and pelvis with contrast. Radiation optimization: All CT scans at this facility use at least one of these dose optimization techniques: automated exposure control; mA and/or kV adjustment per patient size (includes targeted exams where dose is matched to clinical indication); or iterative reconstruction. Contrast material: ISOVUE; Contrast volume: 75 ml; Contrast route: IV; Other protocol: This patient has received 0 known CTs and 0 known cardiac nuclear medicine studies in the 12 months prior to the current study. COMPARISON: [facility] CT abdomen pelvis wo con 10/12/2017 6:12 PM FINDINGS: Liver: No suspicious mass. Gallbladder and bile ducts: Cholecystectomy. Pancreas: No ductal dilation. No peripancreatic inflammatory changes. Spleen: Unremarkable. Adrenal glands: No mass. Kidneys and ureters: No hydronephrosis. Stomach and bowel: Non-obstructive bowel gas pattern. No significant wall thickening. Appendix: No evidence of acute appendicitis. Intraperitoneal space: No free air. No ascites. Vasculature: No abdominal aortic aneurysm. Lymph nodes: No enlarged lymph nodes. Urinary bladder: Unremarkable as visualized. Reproductive: The uterus is present. Indeterminate fullness in the right adnexa. 3.6 cm probable cyst in the right ovary. Bones/joints: No suspicious osseous lesion. No acute fracture. Soft tissues: Incompletely visualized bilateral breast implants. IMPRESSION: Indeterminate fullness in the right adnexa. 3.6 cm probable cyst in the right ovary. Recommend sonographic correlation.
--- NOTE | 2022-05-19 22:30 | HMH.EDGENADL ---
Discharge Plan Disposition Patient Disposition: Home, Self-Care Condition: Good Prescriptions Prescriptions: No Action No Known Home Medications Referrals Follow up/Referrals: Igor Kaplan MD [Staff Physician] - See instructions Rosibel Schmitt APRN [Primary Care Provider] - See instructions Clinical Impressions Clinical Impression: Ovarian cyst Instructions Patient Instructions: DI for Ovarian Cyst Discharge ED Provider: Saleem Grossman Adult HPI General Chief complaint: Abdominal Pain Stated complaint: right front lower stomach and back pain Time Seen by Provider: 05/19/22 22:18 Mode of Arrival: Ambulatory Source of Information: Patient Limitations: No Limitations Description of Symptoms (Recalled from ER Triage Doc. by RN): Pt c/o right lower abdominal/groin pain that radiates into her right lower back. Pain does not radiate. Denies any injury or painful urination. Patient does report nausea. States that she woke up from a nap 4 hours ago with that pain. History of Present Illness HPI narrative: 36-year-old female, prior cholecystectomy,, prior tubal ligation, does still have appendix, no history of kidney stones or ovarian issues. Presents with right lower quadrant pain radiating into the right groin and the right lower back that started this evening suddenly at rest. Denies any dysuria, hematuria, vaginal discharge or bleeding, fevers, vomiting, does report some mild nausea. There have been no treatments for her symptoms prior to arrival. She denies any similar prior painful episodes. Last menstrual period was approximately 3 weeks ago. Related Data Home Medications Medication Instructions Recorded Confirmed No Known Home Medications 05/19/22 05/19/22 Allergies Allergy/AdvReac Type Severity Reaction Status Date / Time Penicillins [PENICILLINS] Allergy Unknown Verified 03/23/22 09:04 [facility] Disclaimer: The information contained in this section may have been updated after the patient was seen, as this information can be updated by other users. 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 current occupational exposures/hazards: Yes caffeine: Yes ROS Obtained: Yes All systems reviewed & no additional complaints except as documented Physical Exam General General appearance: alert and in no apparent distress Head Head exam: atraumatic, normocephalic and normal inspection Eye Eye exam: Present normal appearance, PERRL and EOMI ENT ENT exam: Present normal exam, normal oropharynx, mucous membranes moist, TM's normal bilaterally and normal external ear exam Neck Neck exam: Present normal inspection, full ROM and trachea midline; Absent meningismus or lymphadenopathy Chest Chest inspection: Present normal inspection and symmetric chest wall rise; Absent tenderness Respiratory Respiratory exam: Present normal lung sounds bilaterally; Absent respiratory distress Cardiovascular Cardiovascular exam: Present regular rate and normal rhythm; Absent JVD Abdominal Exam Abdominal exam: Present soft, tenderness (The right lower quadrant), rebound (Mild involuntary) and normal bowel sounds; Absent distention, guarding or rigidity Abdominal tenderness: Present RLQ Extremities Exam Extremities exam: Present normal inspection, full ROM and normal capillary refill; Absent calf tenderness Back Exam Back exam: Present normal inspection; Absent tenderness Neurological Exam Neurological exam: Present alert and oriented X3 Psychiatric Psychiatric exam: Present normal affect and normal mood Skin Skin exam: Present warm, dry, intact and normal color Lymphatic Lymphatic Findin
[2022-05-19 22:36] LABS: Microscopic, Urine URINE MICROSCOPIC (MICROSCOPIC)
[2022-05-19 22:51] LABS: Appearance,Urine CLEAR (Clear); Bilirubin,Urine Negative (Negative); Blood, Urine Negative (Negative); Color,Urine YELLOW (Yellow); Glucose,Urine (UA) Negative (Negative); Ketones,Urine Negative (Negative); Leukocyte Esterase,Urine Negative (Negative); Nitrate,Urine Negative (Negative); PH,Urine 6.5 (5.0-8.5); Protein,Urine Negative (Negative); Specific Gravity, Urine 1.015 (1.005-1.030); Urobilinogen,Urine 0.2 EU/dl (0.2)
[2022-05-19 23:02] LABS: Chloride 104 mmol/L (98-107); Potassium 3.8 mmoL/L (3.5-5.1); Sodium 138 mmol/L (136-145)
[2022-05-19 23:04] LABS: Basophils # 0.1 K/mm3 (0-0.2); Basophils % 0.7 % (0.1-2.0); Eosinophils # 0.1 K/mm3 (0.0-0.4); Eosinophils % 0.9 % (0.1-12.0); Hematocrit 39.5 % (37.0-47.0); Hemoglobin 12.9 g/dL (12.2-16.2); Lymphocytes # 2.8 K/mm3 (0.7-4.5); Lymphocytes % 29.9 % (10-50); Mean Corpuscular HGB Conc 32.7 g/dL (31.8-35.4); Mean Corpuscular Hemoglobin 31.7 pg (27.0-31.2); Monocytes # 0.5 K/mm3 (0.1-1.0); Monocytes % 5.1 % (1.7-9.3); Neutrophils # 5.9 K/mm3 (1.8-7.8); Neutrophils % 63.4 % (37.0-80.0); Platelet Count 332 K/mm3 (142-424); Red Blood Count 4.07 M/mm3 (4.20-5.40); White Blood Count 9.4 K/mm3 (4.8-10.8)
[2022-05-19 23:05] LABS: Alanine Aminotransferase 14 U/L (12-78); Albumin Level 4.4 g/dl (3.5-5.0); Albumin/Globulin Ratio 1.8 (1.1-1.8); Alkaline Phosphatase 47 U/L (38-126); Anion Gap 7.8 mEq/L (5-15); Aspartate Amino Transferase 27 U/L (14-36); Bilirubin,Total 0.3 mg/dl (0.2-1.3); Blood Urea Nitrogen 11 mg/dl (7-17); Calcium 8.8 mg/dl (8.4-10.2); Carbon Dioxide 30 mmol/L (22.0-30.0); Creatinine Clearance Estimated 129 mL/min (50-200); Estimated Glomerular Filt Rate 95 ml/min (>60); GFR (African American) 115 ML/MIN (>60); Globulin 2.4 g/dL (1.3-3.2); Glucose 102 mg/dl (74-100); Lipase 82 U/L (23-300); Total Protein,Serum 6.8 g/dl (6.3-8.2)
[2022-05-19 23:08] LABS: HCG Qualitative, Serum Negative (Negative)
[2022-05-19 23:53] VITALS: BP 130/75; PULSE 85; RESP 17; TEMP 36.7; O2SAT 98
== END 2022-05-20 00:05 | disposition home or self-care (01) ==
PROVIDERS: Emergency Provider Emergency Medicine; PCP Nurse Practitioner Family
DX: N83.201 Unspecified ovarian cyst, right side (principal); F17.210 Nicotine dependence, cigarettes, uncomplicated
CPT/HCPCS: 74177; 80053; 81001; 83690; 84703; 85025; 96361; 96374; 96375; 99285; J2405; Q9967

== ENCOUNTER 2022-10-29 08:40 | Emergency (ER) | payer OTHER, SELFPAY ==
[2022-10-29 08:40] VITALS: BP 133/84; PULSE 104; RESP 16; TEMP 36.7; O2SAT 98; BMI 25.7
--- NOTE | 2022-10-29 08:47 | EXP.UTC ---
Discharge Plan Disposition Patient Disposition: Home, Self-Care Condition: Good Prescriptions Prescriptions: New nitrofurantoin monohyd/m-cryst [Macrobid] 100 mg Capsule 100 mg PO BID Qty: 10 0RF Rx Instructions: must administer with a meal/food methylprednisolone 4 mg Tablets,Dose Pack 4 mg PO DIRECTED Qty: 21 0RF No Action azithromycin [Zithromax] 250 mg tablet 250 mg PO UD DOSE PK Qty: 6 0RF Rx Instructions: Take two (2) tablets today, then one (1) tablet days #2 thru #5 benzonatate [benzonatate] 100 mg capsule 100 mg PO TIDP PRN (Reason: Cough) Qty: 30 0RF methylprednisolone 4 mg Tablets,Dose Pack 4 mg PO DIRECTED Qty: 21 0RF phenazopyridine 200 mg Tablet 200 mg PO TID 2 Days Qty: 6 0RF sulfamethoxazole-trimethoprim [Bactrim DS] 800-160 mg Tablet 1 tab PO BID Qty: 14 0RF Referrals Follow up/Referrals: Rosibel Schmitt APRN [Primary Care Provider] - See instructions Activity Restrictions/Add. Instructions Additional Instructions/Restrictions: Stop the bactrim antibiotics that you are on. Start the new medications. Follow up with your regular doctor. GO TO THE ER FOR ANY WORSENING SYMPTOMS OR CONCERNS Clinical Impressions Clinical Impression: UTI (urinary tract infection) Instructions Patient Instructions: Urinary Tract Infection Discharge ED Provider: John Mireles [facility] General Stated complaint: possible allergic reaction to meds Time Seen by Provider: 10/29/22 08:47 History of Present Illness Provider Complaint: She states that she has had a rash on her left foot for the past 2 days. She is on bactrim for a uti. She states that the last time she took this she also developed a rash on her feet. She denies other complaints. Related Data Previous Rx's Medication Instructions Recorded azithromycin 250 mg tablet 250 mg PO UD DOSE PK #6 tabs 07/13/22 (Zithromax) benzonatate 100 mg capsule 100 mg PO TIDP PRN Cough #30 caps 07/13/22 methylprednisolone 4 mg tablets in 4 mg PO DIRECTED #21 tabs 07/13/22 a dose pack phenazopyridine 200 mg tablet 200 mg PO TID 2 days #6 tabs 10/25/22 sulfamethoxazole 800 1 tab PO BID #14 tabs 10/25/22 mg-trimethoprim 160 mg tablet (Bactrim DS) methylprednisolone 4 mg tablets in 4 mg PO DIRECTED #21 tabs 10/29/22 a dose pack nitrofurantoin 100 mg PO BID #10 caps 10/29/22 monohydrate/macrocrystals 100 mg capsule (Macrobid) Allergies Allergy/AdvReac Type Severity Reaction Status Date / Time Penicillins [PENICILLINS] Allergy Unknown Verified 05/22/22 14:38 [facility] Disclaimer: The information contained in this section may have been updated after the patient was seen, as this information can be updated by other users. Medical History (Updated 10/29/22 @ 09:15 by Lucinda Cross RN) delivery delivered Ganglion cyst Surgical History (Updated 05/22/22 @ 14:40 by Zee Alegria CMA) H/O tubal ligation History of cholecystectomy History of repair of left rotator cuff Family History (Updated 05/22/22 @ 14:41 by Zee Alegria CMA) Other Thyroid disorder Social History (Updated 05/22/22 @ 14:41 by Zee Alegria CMA) Smoking Status: Former smoker pack-years: 10 alcohol intake: never counseling provided: none substance use type: denies use current occupational status: employed Travel in the last 8 weeks: None household members: spouse housing: house 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
[2022-10-29 09:14] VITALS: BP 133/84; PULSE 104; RESP 16; TEMP 36.7; O2SAT 98
== END 2022-10-29 09:15 | disposition home or self-care (01) ==
PROVIDERS: Emergency Provider Nurse Practitioner Family; PCP Nurse Practitioner Family
DX: N39.0 Urinary tract infection, site not specified (principal); R21 Rash and other nonspecific skin eruption; Z87.891 Personal history of nicotine dependence
CPT/HCPCS: 99212; 99214; G0463

== ENCOUNTER 2022-11-27 08:43 | Emergency (ER) | payer OTHER, SELFPAY ==
[2022-11-27 08:43] VITALS: BP 129/87; PULSE 87; RESP 18; TEMP 36.8; O2SAT 100
--- NOTE | 2022-11-27 08:52 | EXP.UTC ---
Discharge Plan Disposition Patient Disposition: Home, Self-Care Condition: Good Prescriptions Prescriptions: New nitrofurantoin monohyd/m-cryst [Macrobid] 100 mg Capsule 100 mg PO BID Qty: 10 0RF Rx Instructions: must administer with a meal/food phenazopyridine [Pyridium] 200 mg tablet 200 mg PO Q8H 2 Days Qty: 6 0RF No Action azithromycin [Zithromax] 250 mg tablet 250 mg PO UD DOSE PK Qty: 6 0RF Rx Instructions: Take two (2) tablets today, then one (1) tablet days #2 thru #5 benzonatate [benzonatate] 100 mg capsule 100 mg PO TIDP PRN (Reason: Cough) Qty: 30 0RF methylprednisolone 4 mg Tablets,Dose Pack 4 mg PO DIRECTED Qty: 21 0RF phenazopyridine 200 mg Tablet 200 mg PO TID 2 Days Qty: 6 0RF sulfamethoxazole-trimethoprim [Bactrim DS] 800-160 mg Tablet 1 tab PO BID Qty: 14 0RF nitrofurantoin monohyd/m-cryst [Macrobid] 100 mg Capsule 100 mg PO BID Qty: 10 0RF Rx Instructions: must administer with a meal/food methylprednisolone 4 mg Tablets,Dose Pack 4 mg PO DIRECTED Qty: 21 0RF Referrals Follow up/Referrals: Rosibel Schmitt APRN [Primary Care Provider] - See instructions Activity Restrictions/Add. Instructions Additional Instructions/Restrictions: Drink plenty of fluids. Take tylenol or ibuprofen for pain or fever. Take the medications as directed. Follow up with your regular doctor. GO TO THE ER FOR ANY WORSENING SYMPTOMS The pyridium will make your urine turn orange, this is an expected side effect. It will stain your clothes if it comes into contact with them. We will culture the urine. That will tell what bacteria is causing your infection and which antibiotics will treat it best. Sometimes the first antibiotic we prescribe turns out to not work against different bacteria. So, make sure you follow up within 3 days if you are not getting better. Clinical Impressions Clinical Impression: UTI (urinary tract infection) Instructions Patient Instructions: Urine Culture, DI for Urinary Tract Infection (UTI), Phenazopyridine Discharge ED Provider: John Mireles [facility] HPI General Stated complaint: possible uti Time Seen by Provider: 11/27/22 08:52 History of Present Illness Provider Complaint: She states that she has had dysuria and urinary frequency for the past 3 days. Related Data Previous Rx's Medication Instructions Recorded azithromycin 250 mg tablet 250 mg PO UD DOSE PK #6 tabs 07/13/22 (Zithromax) benzonatate 100 mg capsule 100 mg PO TIDP PRN Cough #30 caps 07/13/22 methylprednisolone 4 mg tablets in 4 mg PO DIRECTED #21 tabs 07/13/22 a dose pack phenazopyridine 200 mg tablet 200 mg PO TID 2 days #6 tabs 10/25/22 sulfamethoxazole 800 1 tab PO BID #14 tabs 10/25/22 mg-trimethoprim 160 mg tablet (Bactrim DS) methylprednisolone 4 mg tablets in 4 mg PO DIRECTED #21 tabs 10/29/22 a dose pack nitrofurantoin 100 mg PO BID #10 caps 10/29/22 monohydrate/macrocrystals 100 mg capsule (Macrobid) nitrofurantoin 100 mg PO BID #10 caps 11/27/22 monohydrate/macrocrystals 100 mg capsule (Macrobid) phenazopyridine 200 mg tablet 200 mg PO Q8H 2 days #6 tabs 11/27/22 (Pyridium) Allergies Allergy/AdvReac Type Severity Reaction Status Date / Time Penicillins [PENICILLINS] Allergy Unknown Verified 05/22/22 14:38 Sulfa (Sulfonamide Allergy Verified 11/27/22 08:55 Antibiotics) [facility] Disclaimer: The information contained in this section may have been updated after the patient was seen, as this information can be updated by other users. Medical History (Updated 11/27/22 @ 09:29 by John Mireles APRN) delivery delivered Ganglion cyst Surgical History (Updated 05/22/22 @ 14:40 by Zee Alegria CMA) H/O tubal ligation History of cholecystectomy History of repair of left rotator cuff Family History (Updated 05/22/22 @ 14:41 by Zee Alegria CMA) Other Thy
[2022-11-27 09:04] LABS: Microscopic, Urine URINE MICROSCOPIC (MICROSCOPIC)
[2022-11-27 09:14] LABS: Appearance,Urine CLOUDY (Clear); Blood, Urine 3+ (Negative); Color,Urine YELLOW (Yellow); Glucose,Urine (UA) Negative (Negative); Ketones,Urine TRACE (Negative); Leukocyte Esterase,Urine 2+ (Negative); Nitrate,Urine POSITIVE (Negative); Protein,Urine 2+ (Negative); Specific Gravity, Urine >= 1.030 (1.005-1.030)
[2022-11-27 09:31] VITALS: BP 129/87; PULSE 87; RESP 18; TEMP 36.8; O2SAT 100
[2022-11-27 09:35] LABS: Bacteria,Urine 2+ /lpf; Bilirubin,Urine 1+ (Negative); RBC,Urine TNTC #/hpf (0-3); WBC,Urine TNTC #/hpf (0-3)
== END 2022-11-27 09:32 | disposition home or self-care (01) ==
PROVIDERS: Emergency Provider Nurse Practitioner Family; PCP Nurse Practitioner Family
DX: N39.0 Urinary tract infection, site not specified (principal); B96.89 Other specified bacterial agents as the cause of diseases classified elsewhere; Z87.891 Personal history of nicotine dependence
CPT/HCPCS: 81001; 87086; 87088; 87186; 99212; 99214; G0463

== ENCOUNTER → 2022-12-17 09:50 | Outpatient (CLI) | payer OTHER, SELFPAY ==
--- NOTE | 2022-12-17 10:04 | US_ITS ---
PROCEDURE: US TRANSVAGINAL CLINICAL INDICATION: Menorrhagia COMPARISON: No exams were available for comparison FINDINGS: Transvaginal sonographic images of the pelvis were obtained. UTERUS: 9.6 cm x 5.5 cmx 4.2 cm with a combined endometrial thickness of 10mm. The uterus is bulky and anteverted. A scar is visible. There are nabothian cysts within the cervix measuring 8.4 mm and 5.8 mm. LEFT OVARY: 1gdl7dgn2.7cm with a volume of 6.4ml.There are several peripheral follicles. RIGHT OVARY: 4.1 cmx 3.1 cm. There is a dominant follicle measuring 3.6 cm x 2.4 cm x 2.7 cm. There are several other peripheral follicles as well. Both ovaries are seen and appear normal. Doppler flow to both ovaries are seen. There is no fluid in the cul-de-sac. IMPRESSION: 1. Anteverted bulky uterus with a normal endometrium. 2. Both ovaries are seen and have a polycystic appearance. The right ovary has a dominant follicle measuring 3.6 cm. 3. There is no fluid in the cul-de-sac. Dictated by: Igor Kaplan MD 12/17/2022 15:32 Igor Kaplan MD in [place] 12/17/2022 15:32
== END ==
PROVIDERS: PCP Nurse Practitioner Family; Visit Provider Nurse Practitioner Obstetrics & Gynecology
DX: N92.0 Excessive and frequent menstruation with regular cycle (principal)
CPT/HCPCS: 76830

== ENCOUNTER → 2023-01-14 11:34 | Outpatient (CLI) | payer OTHER, SELFPAY ==
[2023-01-14 12:14] LABS: Basophils % 0.4 % (0.1-2.0); Eosinophils # 0.1 K/mm3 (0.0-0.4); Eosinophils % 0.9 % (0.1-12.0); Hematocrit 41.1 % (37.0-47.0); Hemoglobin 12.9 g/dL (12.2-16.2); Lymphocytes # 1.9 K/mm3 (0.7-4.5); Lymphocytes % 28.6 % (10-50); Mean Corpuscular HGB Conc 31.3 g/dL (31.8-35.4); Mean Corpuscular Hemoglobin 30.3 pg (27.0-31.2); Mean Platelet Volume 8.1 fl (7.4-10.4); Monocytes # 0.3 K/mm3 (0.1-1.0); Monocytes % 4.9 % (1.7-9.3); Neutrophils # 4.2 K/mm3 (1.8-7.8); Neutrophils % 65.3 % (37.0-80.0); Platelet Count 325 K/mm3 (142-424); Red Blood Count 4.24 M/mm3 (4.20-5.40); Red Cell Distribution Width 12.7 % (11.5-17.5); White Blood Count 6.5 K/mm3 (4.8-10.8)
[2023-01-14 13:14] LABS: Alanine Aminotransferase 12 U/L (12-78); Albumin Level 4.5 g/dl (3.5-5.0); Albumin/Globulin Ratio 2.3 (1.1-1.8); Alkaline Phosphatase 44 U/L (38-126); Anion Gap 11.1 mEq/L (5-15); Aspartate Amino Transferase 18 U/L (14-36); Bilirubin,Total 0.2 mg/dl (0.2-1.3); Blood Urea Nitrogen 14 mg/dl (7-17); Calcium 9.6 mg/dl (8.4-10.2); Carbon Dioxide 30 mmol/L (22.0-30.0); Chloride 102 mmol/L (98-107); Estimated Glomerular Filt Rate 71 ml/min (>60); GFR (African American) 86 ML/MIN (>60); Glucose 89 mg/dl (74-100); Potassium 4.1 mmoL/L (3.5-5.1); Sodium 139 mmol/L (136-145); Total Protein,Serum 6.5 g/dl (6.3-8.2)
[2023-01-14 13:32] LABS: HCG,Quantitative < 2 mIU/ml (0-5.42)
== END ==
LOC: LAB 11:35
PROVIDERS: PCP Nurse Practitioner Family; Visit Provider Nurse Practitioner Obstetrics & Gynecology
DX: N92.1 Excessive and frequent menstruation with irregular cycle (principal)
CPT/HCPCS: 36415; 80053; 84702; 85025

== ENCOUNTER 2023-01-17 05:55 | Day surgery (SDC) | payer OTHER, SELFPAY ==
[2023-01-16 12:53] VITALS: BMI 24.9
[2023-01-17] VITALS (10 sets, daily range): BP systolic 95–138; BP diastolic 58–90; PULSE 61–80; RESP 14–18; TEMP 36.2–37.2; O2SAT 97–100
--- NOTE | 2023-01-17 07:12 | P.PNANES_ITS ---
[facility] Disclaimer: The information contained in this section may have been updated after the patient was seen, as this information can be updated by other users. 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 current occupational exposures/hazards: Yes caffeine: Yes [facility] Anesthesia Checklist Patient Identification Patient Identification: Arm Band and Verbal (Name & ) Structural Data Admitted From: Home Planned Operative Procedure/s: Hyst/D/C/Novasure Consent for Planned Operative Procedure(s) Verified: Yes NPO Status Verified Time NPO: 00:00 Additional verifications Anesthesia Reactions: No Hx Blood Transfusions: No Blood Transfusion Reaction: No Airway Assessment Mallampati Score:: Class II C-Spine Mobility Assessed: Yes TMJ Mobility Assessed: Yes Dentition: Good Dentition Neurological Assessment Level of Consciousness: Awake Hx Seizures: No Numbness or tingling in extremities: No Anesthesia Plan Anesthesia Risk discussed: Yes Anesthesia Plan: Verified ASA Class: I Anesthesia Type: General
--- NOTE | 2023-01-17 08:08 | P.PNANES_ITS ---
[facility] Anesthesia Record Part I Anesthesia Record I Intake, IV Amount: 700 Hydration: Adequate Estimated blood loss (mL): 25 Urine output (mL): 0 Blood Products used (#): none Blood Pressure: 97/58 SaO2: 97 Pulse Rate: 61 Airway Patency: Patent Respiratory Rate: 16 Temperature: 97.2 F Patient is:: Drowsy and Stable Stable to PACU at:: 08:00
--- NOTE | 2023-01-17 08:12 | EXP.OP.NOTE ---
Date of procedure: 01/17/23 Pre-op Diagnosis:: Menorrhagia Post-op Diagnosis:: Menorrhagia Procedure performed:: Hysteroscopy, dilation and curettage, NovaSure ablation Surgeon:: Igor Kaplan MD ADAPTED PHYSICAL EDUCATION AIDE:: Zain Cohen Anesthesia: LMA Estimated blood loss (mL): 25 Clinical Note:: She is a 37-year-old lady who complains of extremely heavy periods. Ultrasound showed a slightly bulky uterus but otherwise normal. Risks and benefits of surgery were discussed with the patient prior to surgery. Operative findings:: She had an anteverted normal size uterus. The uterus sounded to 8 cm. The endometrial cavity appeared thin and otherwise normal. Both tubal ostia were seen and appeared normal. Operative note:: She was taken to the operating room where LMA anesthesia was found be adequate. She was prepped and draped in the normal sterile fashion in the lithotomy position. A weighted speculum was placed in the vagina and the anterior lip of the cervix was grasped with a tenaculum. The cervix was then dilated to approximately 6 mm. I then inserted a hysteroscope into the uterine cavity and the findings were as previously dictated. I then performed a gentle curettage with a medium curette. I then sounded the uterus and determine the length of the uterus. It was found to be 8 cm. The endometrial cavity was 5.5 cm long and 4.0 cm wide. I then inserted the NovaSure device and determine the width of the endometrial cavity. This was placed into the NovaSure device. I then ran the device through its program. I further inspected the endometrial cavity and was found to be completely charred. I then injected 30 cc of 0.5% ropivacaine at the 3:00, 5:00, 7:00, and 9:00 positions of the cervix. She tolerated procedure well and was taken to the recovery room in excellent condition. All sponge and instrument counts were correct. The estimated blood loss was less than 25 cc. Condition: stable Disposition: PACU Specimens:: Endometrial curettings Complications:: None
--- NOTE | 2023-01-18 13:47 | EXP.ANES.II ---
[facility] Anesthesia Record Part II Anesthesia Record Part II Discharge Time: 08:40 Destination: Surgical Day Care (OP Surgery) PACU nurse assessment reviewed?: Yes Patient Condition:: Good Anesthesia Complications:: None Swallowing reflex intact?: Yes Airway Patency: Patent Cyanosis?: No Blood Pressure: 120/77 SaO2: 99 Respiratory Rate: 18 Pulse Rate: 69 Temperature: 97.5 F Mental Status: Alert & Oriented Pain level:: 2 Nausea and/or vomitting:: None Intake, IV Amount: 0 Hydration: Adequate
[2023-01-18 13:48] VITALS: BP 120/77; PULSE 69; RESP 18; TEMP 36.4; O2SAT 99
== END 2023-01-17 09:15 | disposition home or self-care (01) ==
PROVIDERS: PCP Nurse Practitioner Family; Visit Provider Nurse Practitioner Obstetrics & Gynecology
PROC: 0U5B8ZZ Destruction of Endometrium, Via Natural or Artificial Opening Endoscopic (ICD-10-PCS; CPT 58563; principal; 2023-01-17 07:30)
DX: N92.0 Excessive and frequent menstruation with regular cycle (principal); N85.4 Malposition of uterus; N84.0 Polyp of corpus uteri
CPT/HCPCS: 58563; 96374; J2405

== ENCOUNTER 2023-02-18 12:48 | Emergency (ER) | payer OTHER, SELFPAY ==
[2023-02-18 12:49] VITALS: BP 136/65; PULSE 86; RESP 18; TEMP 37; O2SAT 98; BMI 26.4
--- NOTE | 2023-02-18 12:56 | EXP.UTC ---
Discharge Plan Disposition Patient Disposition: Home, Self-Care Condition: Good Prescriptions Prescriptions: New nitrofurantoin monohyd/m-cryst [Macrobid] 100 mg Capsule 100 mg PO BID Qty: 10 0RF Rx Instructions: must administer with a meal/food phenazopyridine [Pyridium] 200 mg tablet 200 mg PO Q8H 2 Days Qty: 6 0RF Referrals Follow up/Referrals: Rosibel Schmitt APRN [Primary Care Provider] - See instructions Activity Restrictions/Add. Instructions Additional Instructions/Restrictions: Drink plenty of fluids. Take tylenol or ibuprofen for pain or fever. Take the medications as directed. Follow up with your regular doctor. GO TO THE ER FOR ANY WORSENING SYMPTOMS The pyridium will make your urine turn orange, this is an expected side effect. It will stain your clothes if it comes into contact with them. We will culture the urine. That will tell what bacteria is causing your infection and which antibiotics will treat it best. Sometimes the first antibiotic we prescribe turns out to not work against different bacteria. So, make sure you follow up within 3 days if you are not getting better. Clinical Impressions Clinical Impression: UTI (urinary tract infection) Instructions Patient Instructions: Urinary Tract Infection, Phenazopyridine Discharge ED Provider: John Mireles [facility] General Stated complaint: burning when urinates Time Seen by Provider: 02/18/23 12:56 History of Present Illness Provider Complaint: She states that for the past 2 days she has had low back pain, dysuria and urinary frequency. Related Data Previous Rx's Medication Instructions Recorded nitrofurantoin 100 mg PO BID #10 caps 02/18/23 monohydrate/macrocrystals 100 mg capsule (Macrobid) phenazopyridine 200 mg tablet 200 mg PO Q8H 2 days #6 tabs 02/18/23 (Pyridium) Allergies Allergy/AdvReac Type Severity Reaction Status Date / Time Penicillins [PENICILLINS] Allergy Unknown Verified 02/18/23 13:05 Sulfa (Sulfonamide Allergy Verified 02/18/23 13:05 Antibiotics) [facility] Disclaimer: The information contained in this section may have been updated after the patient was seen, as this information can be updated by other users. 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 current occupational exposures/hazards: Yes caffeine: Yes ROS Obtained: Yes All systems reviewed & no additional complaints except as documented Constitutional Constitutional: Reports system reviewed and no additional complaints, except as documented, Denies chills and Denies fever(s) Eyes Eyes: Denies eye discharge ENT Ears, Nose, Mouth, and Throat: Denies dysphagia, Denies sore throat and Denies throat swelling Cardiovascular Cardiovascular: Denies chest pain and Denies dyspnea Respiratory Respiratory: Denies chest congestion, Denies cough and Denies dyspnea Gastrointestinal Gastrointestingal: Denies abdominal pain, constipation, diarrhea, dysphagia, nausea or vomiting Genitourinary Female Genitourinary: Reports as per HPI, Reports dysuria, Reports sexual dysfunction, Reports urinary frequency, Denies urinary incontinence and Reports urinary hesitancy Musculoskeletal Musculoskeletal: Den
[2023-02-18 13:10] LABS: Apearance,Urine Clear (Clear); Color,Urine Dark Yellow (Yellow)
[2023-02-18 13:11] LABS: Bilirubin,Urine Negative (Negative); Blood, Urine Trace (Negative); Glucose,Urine (UA) 100 (Negative); Ketones,Urine Negative (Negative); Protein,Urine Negative (Negative); Specific Gravity, Urine 1.005 (1.005-1.030); UTC Leukocyte Esterase,Urine 1+ (Negative); UTC Nitrate,Urine Positive (Negative); Urobilinogen,Urine 0.2 EU/dl (0.2)
[2023-02-18 13:38] VITALS: BP 136/65; PULSE 86; RESP 18; TEMP 37; O2SAT 98
== END 2023-02-18 13:38 | disposition home or self-care (01) ==
PROVIDERS: Emergency Provider Nurse Practitioner Family; PCP Nurse Practitioner Family
DX: N39.0 Urinary tract infection, site not specified (principal); M54.59 Other low back pain; Z87.891 Personal history of nicotine dependence
CPT/HCPCS: 81003; 87086; 99212; 99214; G0463